=== PATIENT | male | born 1985 | race Caucasian/White ===

== ENCOUNTER 2017-04-28 07:22 | Emergency (ER) | payer SELFPAY ==
[~2017-04-28] VITALS: Ht 170.2 cm; Wt 90.0 kg
[2017-04-28] MEDS ORDERED: CLINDAMYCIN300 M1 PO (08:19)
[2017-04-28 08:28] VITALS: BP 145/99
== END 2017-04-28 08:28 | disposition home or self-care (01) | DRG 159 ==
LOC: ED 07:22
PROC: 0CQ0XZZ Repair Upper Lip, External Approach (ICD-10-PCS; principal; 2017-04-28)
DX: S01.511A Laceration without foreign body of lip, initial encounter (principal); Y04.2XXA Assault by strike against or bumped into by another person, initial encounter; Y92.89 Other specified places as the place of occurrence of the external cause

== ENCOUNTER 2017-12-01 00:09 | Emergency (ER) | payer OTHER ==
[2017-12-01 00:09] VITALS: BP 000/000
[~2017-12-01 00:09] MED LIST: CLINDAMYCIN300 M1 PO
== END 2017-12-01 00:23 | disposition expired | DRG 298 ==
LOC: EDBD 00:09 → ED 00:09
DX: I46.9 Cardiac arrest, cause unspecified (principal); S39.91XA Unspecified injury of abdomen, initial encounter; V49.88XA Car occupant (driver) (passenger) injured in other specified transport accidents, initial encounter; Y92.410 Unspecified street and highway as the place of occurrence of the external cause